=== PATIENT | female | born 1975 | race Caucasian/White ===

== ENCOUNTER 2017-03-20 21:05 | Inpatient (IN) ==
[2017-03-20] MEDS ORDERED: IOPAMIDOL 100 ML BOTTLE IV ONE (21:06)
[2017-03-20] MEDS ORDERED: PHENobarb/HYOSCY/ATROPINE/SCOP 1 DOSE BOTTLE PO ONE (21:21)
[2017-03-20] MEDS ORDERED: ONDANSETRON ODT 4 MG TABLET SL ONE (21:22)
[2017-03-20] MEDS ORDERED: SUCRALFATE 1 GM/10 ML ORAL.SUSP PO ONE (21:39)
[2017-03-20] MEDS ORDERED: PANTOPRAZOLE 40 MG VIAL IV ONE (21:39)
[2017-03-20 22:25] LABS: Basophils # (Auto) 0 K/mcL (0.0-0.3); Basophils % (Auto) 0 % (0.0-2.0); Eosinophils # (Auto) 0.2 K/mcL (0.0-0.7); Eosinophils % (Auto) 2.1 % (0.0-7.0); Granulocytes % (Auto) 84.4 % (38.0-78.0); Lymphocytes % (Auto) 8.8 % (15.5-49.0); Mean Cell Volume 87.3 fL (80.0-100.0); Mean Corpuscular HGB Conc 33.9 g/dL (31.0-36.0); Mean Corpuscular Hemoglobin 29.6 pg (26.0-34.0); Monocytes # (Auto) 0.5 K/mcL (0.1-0.9); Monocytes % (Auto) 4.7 % (1.0-12.0); Platelet Count 325 K/mcL (140-440); RBC 4.69 M/mcL (4.00-5.20)
[2017-03-20 22:53] LABS: ALT/SGPT 283 U/l (0-40); Albumin 3.6 gm/dL (3.2-5.2); Albumin/Globulin Ratio 1.2 (1.0-2.3); Alkaline Phosphatase 354 U/L (39-117); Amylase 630 U/L (28-100); Blood Urea Nitrogen 10 mg/dl (6-20)
[2017-03-20 23:08] LABS: Lipase 7580 U/L (7-60)
--- NOTE | 2017-03-20 23:08 | Emergency Department Note ---
Abdominal Pain HPI - General Chief Complaint: Abdominal Pain Stated Complaint: Thinks Stomach Ulcer Acting Up Time Seen by Provider: 03/20/17 21:08 Source: patient, family Mode of arrival: ambulatory Limitations: no limitations - History of Present Illness HPI Narrative: 41-year-old female who is concerned that she may have an ulcer experiencing epigastric pain for the last 3 weeks. Using Prilosec milk of magnesia Nexium with minimal effect. She actually had some respite yesterday but then he came back today. The pain does not let her sleep although it does not wake her up at night. She reports the pain is there all the time and food does not make it worse. Has bowel movement was little tarry but not black or bloody. Is having some nausea. Taking some Tylenol for that and chills with some effect. Tried some Tums in the past but this did not help. Typically drinks 2-3 beers per day but has not drank at all since this pain started - Related Data Allergies Allergy/AdvReac Type Severity Reaction Status Date / Time No Known Drug Allergies Allergy Verified 05/08/16 07:29 Review of Systems All systems ED: reviewed and negative except as stated. Abdominal Pain PMH - Past Medical History Attestation: Yes: The following information was validated with the patient. Medical history: Reports: no medical history Surgical history ED: Reports: other (Bladder mesh surgery, shoulder surgery) - Social History Smoking status: Never smoker Alcohol use: Reports: Heavy (Typically drinks 2-3 beers per day) Physical Exam No acute distress. Normocephalic atraumatic. Conjunctive are clear sclerae white and nonicteric. No nasal discharge or congestion. Oropharynx is pink and moist. Neck is supple without lymphadenopathy or thyromegaly. Heart is regular rate and rhythm no murmurs appreciated. Lungs are clear to auscultation bilaterally without wheezes rales rhonchi or respiratory distress. Abdomen soft mildly tender epigastric area diffusely. No right upper quadrant tenderness or flank tenderness. She is able to move around on the bed on her own. I do not see any peritoneal signs or guarding. No pedal edema. + 2 radial pulse. Alert oriented able answer questions appropriately. No dysarthria ataxia or tremor - General Limitations: no limitations Course Vital Signs Temperature 98.1 F 03/20/17 21:06 Pulse Rate 78 03/20/17 21:06 Respiratory Rate 18 03/20/17 21:06 Blood Pressure 119/90 03/20/17 21:06 Pulse Oximetry (%) 97 03/20/17 21:06 Temperature 98.1 F 03/20/17 21:06 Pulse Rate 69 03/20/17 22:43 Respiratory Rate 18 03/20/17 21:06 Blood Pressure 118/80 03/20/17 22:37 Pulse Oximetry (%) 96 03/20/17 22:43 Abdominal Pain - Lab Data Lab results reviewed: Yes I reviewed the patient's lab results. Result diagrams: 03/20/17 21:48 03/20/17 21:48 Lab Results 03/20/17 03/20/17 03/20/17 Range/Units 21:48 21:48 21:48 WBC 11.5 H (4.5-11.0) K/mcL RBC 4.69 (4.00-5.20) M/mcL Hgb 13.9 (12.0-15.0) g/dL Hct 41.0 (36.0-48.0) % MCV 87.3 (80.0-100.0) fL MCH 29.6 (26.0-34.0) pg MCHC 33.9 (31.0-36.0) g/dL RDW 14.0 (11.5-14.5) % Plt Count 325 (140-440) K/mcL MPV 8.6 (7.4-10.4) fL Gran % 84.4 H (38.0-78.0) % Lymph % (Auto) 8.8 L (15.5-49.0) % [place] % (Auto) 4.7 (1.0-12.0) % Eos % (Auto) 2.1 (0.0-7.0) % Baso % (Auto) 0 (0.0-2.0) % Gran # 9.7 H (1.8-8.0) K/mcL Lymph # (Auto) 1.0 L (1.5-4.8) K/mcL [place] # (Auto) 0.5 (0.1-0.9) K/mcL Eos # (Auto) 0.2 (0.0-0.7) K/mcL Baso # (Auto) 0 (0.0-0.3) K/mcL VBG Lactic Acid 2.4 H (0.5-2.2) mmol/L Sodium 134 (133-145) mmol/L Potassium 3.5 (3.3-5.1) mmol/L Chloride 96 (96-108) mmol/L Carbon Dioxide 22 (22-30) mmol/L Anion Gap 16.0 (8-16) BUN 10 (6-20) mg/dl Creatinine 0.9 (0.6-1.1) mg/dl GFR Calculation 79 Glucose 256 H (70-105) mg/dL Calcium 8.6 (8.6-10.4) mg/dl Total Bilirubin 1.2 H (0.0-1.0) mg/dL AST 238 H (0-37) U/l ALT 283 H (0-40) U/l Alkaline Phosphatase 354 H (39-117) U/L Total Protein 6.5 (5.9-8.4) gm/dL Albumin 3.6 (3.2-5.2) gm/dL Globulin 2.9 (2.2-3.7) gm/dL Albumin/Globulin Ratio 1.2 (1.0-2.3) Amylase 630 H (28-100) U/L Lipase 7580 H (7-60) U/L - Radiology Data Radiology results reviewed: Yes I reviewed the patient's radiology results. CT scan of the abdomen pelvis with contrast shows an inflamed gallbladder with gallstones as well as inflamed pancreas. Disposition Pt seen by WEEKDAY BABYSITTER/PA only: No Clinical Impression: Acute gallstone pancreatitis, Cholecystitis Summary: Given GI cocktail, Carafate, Zofran and IV Protonix during workup. IV fluids started Found to have an inflamed gallbladder and pancreas on CT scan. Additionally liver enzymes and glucose are up. Discussed case with Dr. Gar, edi coordinator on-call, who agreed to consult on the patient. He recommended high flow fluids overnight lactated Ringer's 250- 300 hour as well as an MRCP in the morning I also discussed case with Dr. Negrete our hospitalist who agreed to accept patient for further evaluation and care as an inpatient Disposition: Xfer Acute [facility] Condition: Fair Referrals: Kayode Paz DO [Primary Care Provider] -
[2017-03-20] MEDS ORDERED: 0.9 % SODIUM CHLORIDE 1,000 ML IV ONE (23:13)
[2017-03-20] MEDS ORDERED: LACTATED RINGERS 1,000 ML IV SCH (23:45)
--- NOTE | 2017-03-21 00:07 | Internal Med History&Physical ---
Medical - H&P: HPI Patient information: Note initiated : 03/21/17 at 12:05 am Patient: Karlie Lockwood 41 y/o F admitted on for Thinks Stomach Ulcer Acting Up. History of present illness: Ms. Lockwood is a 41 year old female with minimal past medical history, mainly hyperlipidemia, who notes that she has had intermittent abdominal discomfort for the last 3 weeks. She says her abdominal pain started rather suddenly just about 3 weeks ago. She thought perhaps she had an ulcer, so she obtained some ulcer medications to take. She was feeling a bit better, until yesterday morning, when she had sudden increase in epigastric pain as well as nausea. Over the course of yesterday her pain built up to about a 9 out of 10. She says she has been having fever and chills for the last couple of days. She has not had a bowel movement for about 3 days now. She denies vomiting or diarrhea. She normally drinks 2-3 cans of beer per day, but is not had any beer for several days. She does not smoke. ER evaluation showed markedly elevated amylase and lipase, consistent with pancreatitis. CT scan is suggestive of gallstone pancreatitis. Patient is now admitted for further evaluation and treatment. Her serum glucose was also markedly elevated, but she denies history of diabetes. Medical History Abdominal pain (Chronic) Acute sinusitis (Chronic) Cellulitis and abscess of leg, except foot (Chronic) Cellulitis, face (Chronic) Constipation (Chronic) Contusion of lower leg (Chronic) Decreased libido (Chronic) Hay fever (Chronic) History of bladder surgery (Chronic) 2009 Bladder mesh Sinus congestion (Chronic) Urinary incontinence (Chronic) Urinary tract infection symptoms (Chronic) Surgical History H/O shoulder surgery (Chronic) 2009 Broken shoulder History of oral surgery (Chronic) History of surgery (Chronic 04/30/10) Left humerus repair History of surgery (Chronic 08/10/10) MiniArc urethral sling Status post debridement (Chronic) 11/2013-Left knee Medication List Multivitamin 1 daily Allergies/Adverse Reaction No Known Drug Allergies Allergy Family History The patient says her mother has hyperlipidemia. She is unsure about her father' s history, but he may have heart disease. One brother is alive and well. She denies family history of diabetes, heart attack, stroke, gallbladder disease. Social History Patient is and lives with her and daughter. She usually drinks 2-3 beers per day. She does not use tobacco or drugs. She works as a sales receptionist. Medical - H&P: Meds Allergies Allergy/AdvReac Type Severity Reaction Status Date / Time No Known Drug Allergies Allergy Verified 05/08/16 07:29 Medical - H&P: Exam - Constitutional Vitals: Temp Pulse Resp BP Pulse Ox 98.1 F 69 18 118/80 96 03/20/17 21:06 03/20/17 22:43 03/20/17 21:06 03/20/17 22:37 03/20/17 22:43 On exam, the patient is awake and alert. She is not in any acute distress. Head: Normocephalic, atraumatic. Eyes: PERRLA, EOMI, anicteric. TMs and canals are clear. Pharynx is clear. Teeth are in good repair. Neck: Is supple, without lymphadenopathy, JVD, thyromegaly, bruits. Cardiac exam shows regular rate and rhythm with normal S1 and S2, without murmurs, rubs, gallops. Lungs: Are clear to auscultation, without rales, rhonchi, wheezes. Abdomen: Is soft. There is moderate epigastric tenderness to palpation, but no guarding or rebound. Bowel sounds are hypoactive. No masses are appreciated. Extremities: Show no cyanosis, clubbing, edema. There is a large well-healed scar noted over her left ankle from a previous accident with her horse. Neurologic exam: Is grossly nonfocal. Skin exam: Does not show any rashes or other worrisome lesions. Medical - H&P: Reslt - Labs CBC & Chem 7: 03/20/17 21:48 03/20/17 21:48 Labs: Short CBC 03/20/17 Range/Units 21:48 WBC 11.5 H (4.5-11.0) K/mcL Hgb 13.9 (12.0-15.0) g/dL Hct 41.0 (36.0-48.0) % Plt Count 325 (140-440) K/mcL BMP 03/20/17 21:48 Sodium 134 Potassium 3.5 Chloride 96 Carbon Dioxide 22 BUN 10 Creatinine 0.9 Glucose 256 H Calcium 8.6 Liver Function 03/20/17 Range/Units 21:48 Total Bilirubin 1.2 H (0.0-1.0) mg/dL AST 238 H (0-37) U/l ALT 283 H (0-40) U/l Alkaline Phosphatase 354 H (39-117) U/L Albumin 3.6 (3.2-5.2) gm/dL CT of the abdomen: Formal report is pending. ER reports as showing gallstone pancreatitis. Medical - H&P: A/P (1) Hyperglycemia Current visit: Yes Status: Acute (2) Leukocytosis Current visit: Yes Status: Acute (3) Acute gallstone pancreatitis Current visit: Yes Status: Acute (4) Hyperlipidemia Current visit: No Status: Chronic - Narrative A/P Narrative: #1. GI. Patient presents with signs and symptoms associated with acute gallstone pancreatitis, cholecystitis.. -Admit, n.p.o., IV fluid resuscitation. -GI consult, with possible ERCP. I believe GI requested an MRCP in the morning. -Pain meds and antiemetics. -Patient is not vomiting, so we will not place an NG tube at this time. -Durham's criteria score of about 2, with a predicted mortality of less than 5%. 2. Endocrine. Patient presents with markedly elevated glucose, suggestive of underlying diabetes, which was not previously diagnosed. -Accu-Cheks and sliding scale coverage. Check hemoglobin A1c. 3. Hyperlipidemia. 4. CODE STATUS: Full code. Her will act as her POA. 5. DVT prophylaxis: SCDs for tonight. Consider heparin after her procedure. 6. Infectious disease. Patient presents with leukocytosis, and recent fevers and chills, probable cholecystitis with pancreatitis.. Check blood cultures. -Cover with empiric Zosyn, pending culture results. Approximately 55 minutes was spent this evening, reviewing the patient's case with the ER MD, reviewing old records and current test results, interviewing and examining the patient, reviewing plan of care, and writing orders.
[2017-03-21] MEDS ORDERED: ALBUTEROL SULFATE 2.5 MG/3 ML NEBULIZER NEB PRN (00:30)
[2017-03-21] MEDS ORDERED: DEXTROSE 50% 50 ML VIAL IV PRN (00:30)
[2017-03-21] MEDS ORDERED: ONDANSETRON 4 MG/2 ML VIAL IV PRN (00:30)
[2017-03-21] MEDS ORDERED: MAGNESIUM HYDROXIDE 30 ML ORAL.SUSP PO PRN (00:30)
[2017-03-21] MEDS ORDERED: NALOXONE HCL 0.4 MG/ML VIAL IV PRN (00:30)
[2017-03-21] MEDS: 0.9 % SODIUM CHLORIDE 10 ML SYRINGE IV SCH ×6 (00:56→22:36)
[2017-03-21] MEDS: LACTATED RINGERS 1,000 ML IV SCH ×6 (00:57→20:48)
[2017-03-21] MEDS ORDERED: LORazepam 2 MG/ML VIAL IV PRN (01:11)
[2017-03-21] MEDS: PIPERACILLIN SODIUM/TAZOBACTAM 3.375 GM in DEXTROSE 5% IN WATER 50 ML IV SCH ×4 (02:08→17:57)
[2017-03-21] MEDS ORDERED: PIPERACILLIN SODIUM/TAZOBACTAM 3.375 GM VIAL IV ONE (02:12)
[2017-03-21 05:06] LABS: Basophils # (Auto) 0 K/mcL (0.0-0.3); Basophils % (Auto) 0.3 % (0.0-2.0); Eosinophils # (Auto) 0.2 K/mcL (0.0-0.7); Eosinophils % (Auto) 2.2 % (0.0-7.0); Granulocytes % (Auto) 70.7 % (38.0-78.0); Lymphocytes # (Auto) 1.3 K/mcL (1.5-4.8); Mean Cell Volume 87.1 fL (80.0-100.0); Mean Corpuscular HGB Conc 34.5 g/dL (31.0-36.0); Monocytes # (Auto) 0.6 K/mcL (0.1-0.9); Monocytes % (Auto) 8.8 % (1.0-12.0); Platelet Count 301 K/mcL (140-440); RBC 4.39 M/mcL (4.00-5.20); Red Cell Distribution Width 13.8 % (11.5-14.5)
[2017-03-21 05:23] LABS: ALT/SGPT 263 U/l (0-40); Albumin 3.7 gm/dL (3.2-5.2); Albumin/Globulin Ratio 1.5 (1.0-2.3); Alkaline Phosphatase 327 U/L (39-117); Amylase 359 U/L (28-100); Bilirubin,Direct 0.4 mg/dL (0.0-0.3); Blood Urea Nitrogen 8 mg/dl (6-20); Gamma Glutamyl Transpeptidase 560 U/L (5-36); Magnesium 2.5 mg/dL (1.6-2.5); Uric Acid 4.1 mg/dL (2.5-8.0)
[2017-03-21 05:28] LABS: Lipase 1854 U/L (7-60)
[2017-03-21] MEDS: INSULIN LISPRO 1 UNIT/0.01 ML UNIT SQ SCH ×3 (06:10→17:57)
[2017-03-21] MEDS: PANTOPRAZOLE 40 MG VIAL IV SCH (07:44)
--- NOTE | 2017-03-21 09:27 | Cat Scan Report ---
CLINICAL INFORMATION: With epigastric pain COMPARISON: None. TECHNIQUE: Following enteric contrast, 80 cc of Isovue-300 were injected intravenously, and 60 seconds later, 2.5 mm helical slices were obtained from the mid heart through the subtrochanteric regions. Following reconstruction, 2.5 mm sagittal, coronal and axial reformatted images were processed and reviewed at bone, lung and soft tissue windows. Five minutes later, 5 mm helical slices were obtained from the mid heart through the kidneys and viewed at soft tissue windows. FINDINGS: Lung bases show no abnormality - no effusion. Visualized heart is normal. The distal esophagus is unremarkable. Images through the abdomen show minimal fatty change within the liver, but no focal hepatic lesion. There is a 2 mm stone within the gallbladder. Gallbladder wall is moderately thickened (5 mm) with moderate pericholecystic fluid which also extends into the armida hepatis and medial periduodenal region. The cystic common hepatic and proximal common bile ducts also show mild thickening and enhancement of the epithelium which suggests secondary cholangitis. The pancreas, including pancreatic duct, is unremarkable. Both kidneys, adrenal glands, spleen and aorta, including aortic branches, are normal in size, configuration and attenuation without focal lesion. The stomach, small and large bowel, including the appendix, are normal. Images through the pelvis show uterus anteflexed and normal in size - 7 x 4 cm. There is a 11 mm simple cyst in the left ovary. Bone windows show no osseous abnormality IMPRESSION: 1. Cholecystitis. Mild enhancement of the biliary epithelium of the the cystic, common hepatic and proximal common bile duct suggest associated cholangitis. Interpreted and Authenticated by: Kayode Wells 03/21/17
--- NOTE | 2017-03-21 12:55 | Internal Med Progress Note ---
Medical - PN: Subj Patient information: Note initiated : 03/21/17 at 12:53 pm Patient: Karlie Lockwood 41 y/o F admitted on 03/21/17 for Thinks Stomach Ulcer Acting Up. Interval history: March 20, 2017: History of present illness: Ms. Lockwood is a 41 year old female with minimal past medical history, mainly hyperlipidemia, who notes that she has had intermittent abdominal discomfort for the last 3 weeks. She says her abdominal pain started rather suddenly just about 3 weeks ago. She thought perhaps she had an ulcer, so she obtained some ulcer medications to take. She was feeling a bit better, until yesterday morning, when she had sudden increase in epigastric pain as well as nausea. Over the course of yesterday her pain built up to about a 9 out of 10. She says she has been having fever and chills for the last couple of days. She has not had a bowel movement for about 3 days now. She denies vomiting or diarrhea. She normally drinks 2-3 cans of beer per day, but is not had any beer for several days. She does not smoke. ER evaluation showed markedly elevated amylase and lipase, consistent with pancreatitis. CT scan is suggestive of gallstone pancreatitis. Patient is now admitted for further evaluation and treatment. Her serum glucose was also markedly elevated, but she denies history of diabetes. March 21: Today, the patient notes her pain is pretty well controlled. She has not had any more nausea and no vomiting. She is feeling quite chilled after just coming back from the MRI suite. Otherwise she has not had further fever or shaking chills, chest pain or trouble breathing, diarrhea or constipation. She has passed some flatus. She denies dysuria. - Constitutional Vitals: Vital Signs Temp Pulse Resp BP Pulse Ox 98.6 F 55 L 16 110/68 95 03/21/17 12:00 03/21/17 07:45 03/21/17 12:00 03/21/17 12:00 03/21/17 12:00 Period Temp Pulse Resp BP Sys/Collazo Pulse Ox Last 24 Hr 98 F-98.6 F 55-56 16-16 98-110/68-71 95-98 Intake and Output 03/20/17 03/21/17 03/21/17 21:59 05:59 13:59 Intake Total 992 / 992 1050 / 1050 Output Total 600 / 600 1500 / 1500 Balance 392 / 392 -450 / -450 Intake & Output: Intake & Output 03/20/17 03/21/17 03/21/17 21:59 05:59 13:59 Intake Total 992 / 992 1050 / 1050 Output Total 600 / 600 1500 / 1500 Balance 392 / 392 -450 / -450 Intake: IV 992 / 992 1050 / 1050 Lactated Ringers 1,000 ml 992 / 992 1000 / 1000 @ 250 mls/hr IV .Q4H [facility] Rx#:[id number] Zosyn 3.375 gm In 50 / 50 Dextrose 5% in Water 50 ml @ 100 mls/hr IV Q6H [facility]AM Rx#:[id number] Oral 0 / 0 Output: Void Amount 600 / 600 1500 / 1500 Other: # Bowel Movements 1 Temperature 98.6. Heart rate 55-69. Respiratory rate 16. Blood pressure 110/ 68. O2 saturation 95% on room air Neck is supple without lymphadenopathy or JVD. Cardiac exam shows regular rate and rhythm. Lungs are clear to auscultation. Abdomen: Is soft without guarding or rebound. There is mild epigastric tenderness. No masses are obvious. Bowel sounds are hypoactive. Extremities: Show no edema. Neurologic exam: Is grossly nonfocal. Medical - PN: Obj Da - Labs CBC & Chem 7: 03/21/17 04:00 03/21/17 04:00 Labs: Abnormal Lab Results 03/21/17 03/21/17 04:00 04:00 Lymph # (Auto) 1.3 L Calcium 8.4 L Direct Bilirubin 0.4 H GGT 560 H AST 164 H ALT 263 H Alkaline Phosphatase 327 H Triglycerides 354 H Amylase 359 H Lipase 1854 H March 21: Blood cultures are pending. MRCP: Report is pending. March 20: CT of the abdomen and pelvis: Gallbladder wall is thickened with moderate pericholecystic fluid. Bile ducts are also thickened, suggesting possible secondary cholangitis. Pancreas and pancreatic duct are unremarkable. CBC: White blood cell count 11,500, hemoglobin 13, hematocrit 41, granulocyte count 9700. Pro time is 12 with INR of 0.9, PTT is normal at 30. Lactic acid was elevated at 2.4. Chemistry panel: Is normal other than a glucose of 256 Total bilirubin elevated at 1.2, AST 238, ALT 283, alk phos 354 Amylase high at 630 Lipase high at 7580 Meds: Medications Albuterol Sulfate (Ventolin) 2.5 mg NEB Q2HP PRN PRN Reason: Shortness Of Breath Dextrose (Dextrose 50%) 0 ml IV UD PRN PRN Reason: Hypoglycemia Diagnostic Test (Pha) (Accu-Chek) 1 each FS Q6 [facility] Last Admin: 03/21/17 12:05 Dose: 1 each Lactated Ringer's (Lactated Ringers) 1,000 mls @ 250 mls/hr IV .Q4H [facility] Last Admin: 03/21/17 12:07 Dose: Not Given Piperacillin Sod/Tazobactam (Sod 3.375 gm/ Dextrose) 50 mls @ 100 mls/hr IV Q6H [facility] Last Admin: 03/21/17 12:05 Dose: 100 mls/hr Insulin Human Lispro (Humalog) 0 unit SQ Q6 [facility] PRN Reason: Protocol Last Admin: 03/21/17 12:05 Dose: Not Given Lorazepam (Ativan) 0.5 mg IV Q2HP PRN PRN Reason: ANXIETY/SEDATION Last Admin: 03/21/17 08:31 Dose: 0.5 mg Magnesium Hydroxide (Milk Of Magnesia) 30 ml PO DAILYP PRN PRN Reason: Constipation Morphine Sulfate (Morphine) 4 mg IV Q4HP PRN PRN Reason: Pain Naloxone HCl (Narcan) 0.1 mg IV Q2MIN PRN PRN Reason: Opiate Reversal Ondansetron HCl (Zofran) 4 mg IV Q6HP PRN PRN Reason: Nausea And Vomiting Pantoprazole Sodium (Protonix) 40 mg IV QAMAC [facility] Last Admin: 03/21/17 07:44 Dose: 40 mg Sodium Chloride (Saline Flush) 10 ml IV Q8 [facility] Last Admin: 03/21/17 06:11 Dose: Not Given Medical - PN: A/P - Time Spent With Patient Total time spent is greater than 50% in coordination of care (as documented) at patient's floor/unit and/or counseling patient: 25 - 35 minutes (1) Hyperglycemia Status: Acute Current Visit: Yes (2) Leukocytosis Status: Acute Current Visit: Yes (3) Acute gallstone pancreatitis Status: Acute Current Visit: Yes (4) Hyperlipidemia Status: Chronic Current Visit: No - Narrative A/P Narrative: #1. GI. Patient presents with signs and symptoms associated with acute gallstone pancreatitis, cholecystitis.. CT scan report that I just received, suggest more a picture of cholecystitis and cholangitis, rather than pancreatitis. The patient is clinically improved, on IV fluids and IV Zosyn. -I will review with Dr. Ivey of general surgery. -Continue IV fluids, n.p.o. status. Pain meds, antiemetics. -Dr. Samaniego of GI to see later today. 2. Endocrine. Patient presents with markedly elevated glucose, suggestive of underlying diabetes, which was not previously diagnosed. -Accu-Cheks have shown normal glucoses ranging from 86-118. 3. Hyperlipidemia. -Not treated. 4. CODE STATUS: Full code. Her will act as her POA. 5. DVT prophylaxis: SCDs for tonight. Consider heparin after her procedure. 6. Infectious disease. Patient presents with leukocytosis, and recent fevers and chills, probable cholecystitis with pancreatitis.. Check blood cultures. -Cover with empiric Zosyn, pending culture results. Approximately 30 minutes has been spent so far today, reviewing test results, interviewing and examining the patient and reviewing plan of care with she and her , touching base with both GI and surgery. Medical - PN: Qual - VTE Deep Vein Thrombosis/Pulmonary Embolism Present on Admission: No
--- NOTE | 2017-03-21 15:40 | Magnetic Resonance Report ---
CLINICAL INFORMATION: Cholecystitis. Evaluate for retained common bile duct stone COMPARISON: Abdominal CT from 03/20/2017. TECHNIQUE: MRCP was performed using 3D FRFSE respiratory triggered and single-shot FSE thick slab technique. Axial T2 SSFSE and coronal SSFSE images were obtained through the upper abdomen as well. FINDINGS: The gallbladder is mildly enlarged with marked gallbladder wall thickening - greater than 8 mm and pericholecystic fluid which extends into the armida hepatis. While region. Solitary stone seen in the gallbladder. There is minimal thickening of the cystic duct common hepatic and proximal common bile duct epithelium suggestive of secondary inflammation. Common bile is normal caliber - 5 mm There is no evidence of retained stone within the common bile duct. The liver, both kidneys, adrenal glands, spleen and aorta are normal. The pancreas is normal in size configuration and signal intensity. (It is acknowledged that amylase/lipase are elevated and pancreatitis is suspected but there is no imaging evidence for pancreatic inflammation). No free air, free fluid or adenopathy. The stomach and visualized small/large bowel are normal IMPRESSION: 1. Acute cholecystitis. Solitary stone is seen in the gallbladder. There is moderate gallbladder wall thickening and pericholecystic fluid with fluid extending in the armida hepatis and periduodenal region. 1. Mild thickening of the ductal epithelium of the common hepatic and proximal common bile and cystic duct suggesting secondary cholangitis. There is no evidence of retained duct stone 2. Pancreas, including pancreatic ducts, is unremarkable Interpreted and Authenticated by: Kayode Wells 03/21/17
--- NOTE | 2017-03-21 22:55 | Consultation ---
DATE OF CONSULTATION: 03/21/2017 Gastroenterology Consultation Note CHIEF COMPLAINT: Pancreatitis. HISTORY OF PRESENT ILLNESS: Mrs. Sharma is 41-year-old female who presented to the emergency room late last night with intermittent abdominal pain that became severe yesterday. Her presenting laboratory data showed an elevated lipase and amylase with elevated liver chemistries as well, suggesting gallstone pancreatitis. The patient does have a history of drinking 2 or maybe 3 beers per day, but in the last 3 weeks had stopped drinking any alcohol. She has very little past medical history. She is on no chronic medications. However, during the last 3 weeks she has had intermittent epigastric pain which she attributed to an ulcer. She self-medicated with some antacid pills and would obtain some occasional relief of pain. In fact earlier this week she had no further pain and she thought that whatever problem existed had resolved. Then yesterday she had fairly rapid onset of epigastric pain of a much more severe nature, associated with fever and chills. No vomiting. She came to the emergency room for evaluation. Her lipase was 7580. Amylase 630. Total bilirubin elevated at 1.2 with AST 238, ALT 283 and alkaline phosphatase 354. White count was a little bit elevated at 11,500 last night. A CAT scan done last night showed cholecystitis with mild enhancement of the biliary epithelium of the cystic duct, common hepatic duct, and proximal common bile duct suggesting possible associated cholangitis. The pancreas actually looked normal. I advised that the patient receive intravenous with fluid hydration aggressively with lactated Ringer's. Nothing by mouth status. Supportive measures. I recommended MRCP to be done today. The MRCP was done today and showed acute cholecystitis with solitary stone in the gallbladder. Moderate gallbladder wall thickening and pericholecystic fluid. Mild thickening of the ductal epithelium of the common hepatic duct and proximal common bile duct and cystic duct, suggested secondary cholangitis, but there was no evidence of retained duct stone. The pancreas continues to appear unremarkable on the MRCP. Today, her bilirubin is down to 0.8. AST is down to 164; ALT down to 263; alkaline phosphatase down to 327; lipase down to 1854, and amylase down to 359. White count is down to 7200. The patient feels fairly well tonight. No nausea or vomiting today. Her chills have resolved. She is awaiting consultation by general surgery. PAST MEDICAL HISTORY: Essentially negative, other than some hyperlipidemia. Not on any medical treatment. MEDICATIONS: No chronic medications. PAST SURGICAL HISTORY: No abdominal surgeries. ALLERGIES: NO KNOWN DRUG ALLERGIES. SOCIAL HISTORY: No smoking. . Had been drinking 2 or 3 beers per day but not in the last 3 weeks or so. EXAMINATION: VITAL SIGNS: Temperature 98.6 degrees, pulse 84, respirations 16, blood pressure 116/78. GENERAL: The patient is awake and alert. No acute distress. HEENT: Airway is patent. SKIN: Without stigmata of chronic liver disease. CARDIAC: Regular rate and rhythm without gallop. LUNGS: Clear bilaterally to auscultation. ABDOMEN: Soft and nondistended. No tenderness tonight on moderate palpation. No hepatosplenomegaly. No evident ascites. EXTREMITIES: Without edema. LABORATORY STUDIES: As noted above. ASSESSMENT AND RECOMMENDATIONS: Even though the patient has a normal appearing pancreas on CAT scan and MRCP, I do think she developed pancreatitis given the characteristic pain at the epigastrium and the elevated pancreatic enzymes. The question of gallstone pancreatitis was raised because of the elevated liver chemistries, but on MRCP testing today there is no retained stone in the common bile duct to suggest need for endoscopic retrograde cholangiopancreatography. She does have evidence of cholecystitis by the CAT scan and MRCP. I agree with consulting surgery for a cholecystectomy, hopefully during this admission. Continue intravenous fluid and antibiotic coverage with Zosyn, as you are doing. JCM:natalia Job ID: [id number] Doc ID: [id number] Kayode Paz DO
[2017-03-22] MEDS: PIPERACILLIN SODIUM/TAZOBACTAM 3.375 GM in DEXTROSE 5% IN WATER 50 ML IV SCH ×4 (00:17→17:43)
[2017-03-22] MEDS: INSULIN LISPRO 1 UNIT/0.01 ML UNIT SQ SCH ×4 (00:20→17:53)
[2017-03-22] MEDS: LACTATED RINGERS 1,000 ML IV SCH ×8 (00:59→22:57)
[2017-03-22] MEDS: 0.9 % SODIUM CHLORIDE 10 ML SYRINGE IV SCH ×3 (05:19→21:58)
[2017-03-22 06:20] LABS: Basophils # (Auto) 0 K/mcL (0.0-0.3); Basophils % (Auto) 0.1 % (0.0-2.0); Eosinophils # (Auto) 0 K/mcL (0.0-0.7); Eosinophils % (Auto) 0 % (0.0-7.0); Granulocytes % (Auto) 84.6 % (38.0-78.0); Lymphocytes # (Auto) 0.5 K/mcL (1.5-4.8); Lymphocytes % (Auto) 9.2 % (15.5-49.0); Mean Cell Volume 87.4 fL (80.0-100.0); Mean Corpuscular HGB Conc 33.8 g/dL (31.0-36.0); Mean Corpuscular Hemoglobin 29.5 pg (26.0-34.0); Monocytes # (Auto) 0.4 K/mcL (0.1-0.9); Monocytes % (Auto) 6.1 % (1.0-12.0); Platelet Count 257 K/mcL (140-440); RBC 4.45 M/mcL (4.00-5.20); Red Cell Distribution Width 13.4 % (11.5-14.5)
[2017-03-22 06:51] LABS: ALT/SGPT 209 U/l (0-40); Albumin 3.5 gm/dL (3.2-5.2); Albumin/Globulin Ratio 1.4 (1.0-2.3); Alkaline Phosphatase 275 U/L (39-117); Amylase 100 U/L (28-100); Bilirubin,Direct 0.3 mg/dL (0.0-0.3); Blood Urea Nitrogen 6 mg/dl (6-20); Gamma Glutamyl Transpeptidase 435 U/L (5-36); Lipase 255 U/L (7-60); Magnesium 1.8 mg/dL (1.6-2.5); Uric Acid 2.7 mg/dL (2.5-8.0)
[2017-03-22] MEDS ORDERED: POTASSIUM PHOSPHATE 20 MEQ in DEXTROSE 5% IN WATER 250 ML IV ONE (07:30)
[2017-03-22] MEDS: PANTOPRAZOLE 40 MG VIAL IV SCH (08:03)
--- NOTE | 2017-03-22 10:31 | Internal Med Progress Note ---
Medical - PN: Subj Patient information: Note initiated : 03/22/17 at 10:31 am Patient: Karlie Lockwood 41 y/o F admitted on 03/21/17 for Thinks Stomach Ulcer Acting Up. Interval history: March 20, 2017: History of present illness: Ms. Lockwood is a 41 year old female with minimal past medical history, mainly hyperlipidemia, who notes that she has had intermittent abdominal discomfort for the last 3 weeks. She says her abdominal pain started rather suddenly just about 3 weeks ago. She thought perhaps she had an ulcer, so she obtained some ulcer medications to take. She was feeling a bit better, until yesterday morning, when she had sudden increase in epigastric pain as well as nausea. Over the course of yesterday her pain built up to about a 9 out of 10. She says she has been having fever and chills for the last couple of days. She has not had a bowel movement for about 3 days now. She denies vomiting or diarrhea. She normally drinks 2-3 cans of beer per day, but is not had any beer for several days. She does not smoke. ER evaluation showed markedly elevated amylase and lipase, consistent with pancreatitis. CT scan is suggestive of gallstone pancreatitis. Patient is now admitted for further evaluation and treatment. Her serum glucose was also markedly elevated, but she denies history of diabetes. March 21: Today, the patient notes her pain is pretty well controlled. She has not had any more nausea and no vomiting. She is feeling quite chilled after just coming back from the MRI suite. Otherwise she has not had further fever or shaking chills, chest pain or trouble breathing, diarrhea or constipation. She has passed some flatus. She denies dysuria. March 22: Today, the patient says she is feeling much better. She denies any abdominal pain, nausea or vomiting. She did have a low-grade temp last night of 100.8. She denies subjective fever or chills, chest pain or shortness of breath, abdominal pain, nausea or vomiting, diarrhea or constipation or dysuria. Pancreatic enzymes and liver enzymes continue to improve. - Constitutional Vitals: Vital Signs Temp Pulse Resp BP Pulse Ox 99.2 F H 67 16 111/77 95 03/22/17 08:00 03/22/17 08:00 03/22/17 08:00 03/22/17 08:00 03/22/17 08:00 Period Temp Pulse Resp BP Sys/Collazo Pulse Ox Last 24 Hr 98.2 F-100.8 F 66-84 16-16 110-120/68-80 94-98 Intake and Output 03/21/17 03/22/17 03/22/17 21:59 05:59 13:59 Intake Total 2049 50 / 50 Output Total 1849 900 / 900 Balance 200 / 200 25 / 25 -850 / -850 Weight 159 lb Intake & Output: Intake & Output 03/21/17 03/22/17 03/22/17 21:59 05:59 13:59 Intake Total 2049 50 / 50 Output Total 1849 900 / 900 Balance 200 / 200 25 / 25 -850 / -850 Weight 159 lb Intake: IV 2049 50 / 50 Lactated Ringers 1,000 ml 1999 / 1999 1999 / 1999 @ 250 mls/hr IV .Q4H MYRIAM Rx#:[id number] Zosyn 3.375 gm In 50 / 50 50 / 50 50 / 50 Dextrose 5% in Water 50 ml @ 100 mls/hr IV Q6H MYRIAM Rx#:[id number] Oral 0 / 0 Output: Void Amount 1849 900 / 900 Other: # Voids 1 1 T-max was 100.8, now 99.2. Heart rate 67. Respiratory rate 16. Blood pressure 111/77. O2 saturation 95% on room air. She is awake and smiling, in no acute distress. Neck is supple without lymphadenopathy or JVD. Cardiac exam shows regular rate and rhythm. Lungs are clear to auscultation. Abdomen: Is soft without guarding or rebound. There is normal epigastric tenderness, and no obvious right upper quadrant tenderness.. No masses are obvious. Bowel sounds are hypoactive. Extremities: Show no edema. Neurologic exam: Is grossly nonfocal. Medical - PN: Obj Da - Labs CBC & Chem 7: 03/22/17 05:30 03/22/17 05:30 Labs: Abnormal Lab Results 03/22/17 03/22/17 03/21/17 05:30 05:30 04:00 Gran % 84.6 H Lymph % (Auto) 9.2 L Lymph # (Auto) 0.5 L Calcium 8.5 L 8.4 L Phosphorus 2.3 L Direct Bilirubin 0.4 H GGT 435 H 560 H AST 116 H 164 H ALT 209 H 263 H Alkaline Phosphatase 275 H 327 H Triglycerides 239 H 354 H Amylase 359 H Lipase 255 H 1854 H 03/21/17 04:00 Gran % Lymph % (Auto) Lymph # (Auto) 1.3 L Calcium Phosphorus Direct Bilirubin GGT AST ALT Alkaline Phosphatase Triglycerides Amylase Lipase March 21: Blood cultures are negative so far. MRCP: Shows acute cholecystitis. There is a solitary stone in the gallbladder with moderate gallbladder wall thickening and pericholecystic fluid. Mild thickening of the ductal epithelium of the common hepatic and proximal common bile duct and cystic duct suggestive of cholangitis. Pancreas, including ducts , is unremarkable. March 20: CT of the abdomen and pelvis: Gallbladder wall is thickened with moderate pericholecystic fluid. Bile ducts are also thickened, suggesting possible secondary cholangitis. Pancreas and pancreatic duct are unremarkable. CBC: White blood cell count 11,500, hemoglobin 13, hematocrit 41, granulocyte count 9700. Pro time is 12 with INR of 0.9, PTT is normal at 30. Lactic acid was elevated at 2.4. Chemistry panel: Is normal other than a glucose of 256 Total bilirubin elevated at 1.2, AST 238, ALT 283, alk phos 354 Amylase high at 630 Lipase high at 7580 Meds: Medications Albuterol Sulfate (Ventolin) 2.5 mg NEB Q2HP PRN PRN Reason: Shortness Of Breath Dextrose (Dextrose 50%) 0 ml IV UD PRN PRN Reason: Hypoglycemia Diagnostic Test (Pha) (Accu-Chek) 1 each FS Q6 [facility] Last Admin: 03/22/17 05:32 Dose: 1 each Lactated Ringer's (Lactated Ringers) 1,000 mls @ 250 mls/hr IV .Q4H MYRIAM Last Admin: 03/22/17 05:24 Dose: 250 mls/hr Piperacillin Sod/Tazobactam (Sod 3.375 gm/ Dextrose) 50 mls @ 100 mls/hr IV Q6H [facility] Last Infusion: 03/22/17 06:00 Dose: Infused Insulin Human Lispro (Humalog) 0 unit SQ Q6 MYRIAM PRN Reason: Protocol Last Admin: 03/22/17 05:33 Dose: Not Given Lorazepam (Ativan) 0.5 mg IV Q2HP PRN PRN Reason: ANXIETY/SEDATION Last Admin: 03/21/17 08:31 Dose: 0.5 mg Magnesium Hydroxide (Milk Of Magnesia) 30 ml PO DAILYP PRN PRN Reason: Constipation Morphine Sulfate (Morphine) 4 mg IV Q4HP PRN PRN Reason: Pain Naloxone HCl (Narcan) 0.1 mg IV Q2MIN PRN PRN Reason: Opiate Reversal Ondansetron HCl (Zofran) 4 mg IV Q6HP PRN PRN Reason: Nausea And Vomiting Pantoprazole Sodium (Protonix) 40 mg IV QAMAC [facility] Last Admin: 03/22/17 08:03 Dose: 40 mg Sodium Chloride (Saline Flush) 10 ml IV Q8 [facility] Last Admin: 03/22/17 05:19 Dose: Not Given Medical - PN: A/P - Time Spent With Patient Total time spent is greater than 50% in coordination of care (as documented) at patient's floor/unit and/or counseling patient: 15 - 24 minutes (1) Hyperglycemia Status: Acute Current Visit: Yes (2) Leukocytosis Status: Acute Current Visit: Yes (3) Acute gallstone pancreatitis Status: Acute Current Visit: Yes (4) Hyperlipidemia Status: Chronic Current Visit: No - Narrative A/P Narrative: #1. GI. Patient presents with signs and symptoms associated with acute gallstone pancreatitis, cholecystitis.. CT scan and MRCP suggest more a picture of cholecystitis and cholangitis, rather than pancreatitis. The patient is clinically improved, on IV fluids and IV Zosyn. -Dr. Ivey will formally see her today, and plan on cholecystectomy, probably tomorrow. -The patient continues to be febrile, so I will continue Zosyn, and add ciprofloxacin to beef up the gram-negative coverage. -Continue IV fluids. We will give her a trial of clear fluids this afternoon. Pain meds, antiemetics. -Dr. Samaniego of GI has seen her as well, and also agrees with the need for probable surgery. 2. Endocrine. Patient presents with markedly elevated glucose, suggestive of underlying diabetes, -Blood glucoses have been normal since admission. 3. Hyperlipidemia. -Not treated. 4. CODE STATUS: Full code. Her will act as her POA. 5. DVT prophylaxis: SCDs for tonight. Consider heparin after her procedure. 6. Infectious disease. Patient presents with leukocytosis, and recent fevers and chills, probable cholecystitis with pancreatitis.. Check blood cultures. -Cover with empiric Zosyn, pending culture results. -Add ciprofloxacin today, as above. Approximately 25 minutes has been spent so far today, reviewing test results, interviewing and examining the patient and reviewing plan of care with she and her , touching base with surgery. Medical - PN: Qual - VTE Deep Vein Thrombosis/Pulmonary Embolism Present on Admission: No
[2017-03-22] MEDS: CIPROFLOXACIN 400 MG/200 ML BAG IV SCH ×2 (13:38→22:58)
--- NOTE | 2017-03-22 17:01 | General Surgery Consult Note ---
History of Present Illness Patient information: Note initiated : 03/22/17 at 4:58 pm Service Date, if different from initiated Date: [] Patient: Karlie Lockwood 41 y/o F admitted on 03/21/17 for Gallstone Pancreatitis, Cholecystitis. Chief Complaint: [] Reason for consult: abdominal pain Requesting physician: Rosy Maki History of present illness: 41-year-old female admitted with recurrent severe abdominal pain of 3 weeks duration. Her pain became mue on the day of admission and she finally sought attention in the emergency room. Prior to coming to the emergency room she took Mylanta Nexium and other [id number] me without improvement. She had not had similar abdominal discomfort in the past. She was noted in the emergency room to have elevated LFTs and amylase and lipase. Abdominal CT suggested gallstones. This was confirmed by MRCP. There was some thickening of the distal common bile duct epithelium but no common bile duct stone. Over the past 2 days her transaminases and amylase and lipase have started to normalize. Her bilirubin was never elevated. She is stable now and will be scheduled for laparoscopic cholecystectomy on this admission. Review of Systems - Constitutional weight gain - EENT Nose, mouth and throat: no abnormal hearing, no dizziness, no neck pain, no throat swelling - Cardiovascular no chest pain, no dyspnea, no irregular heart rhythm, no palpatations, no syncope - Respiratory no dyspnea on exertion, no wheezing, no chest congestion, no pain with cough - Gastrointestinal abdominal pain, constipation, heartburn, nausea - Genitourinary Genitourinary: urinary incontinence - Musculoskeletal arthralgias, stiffness - Integumentary no non-healing lesions, no pruritus, no rash, no sores - Neurological no abnormal gait, no confusion, no dizziness, no headache(s), no memory loss, no numbness, no syncope - Psychiatric no anxiety, no confusion, no depression, no paranoia - Endocrine no fatigue, no palpitations - Hematologic/Lymphatic no easy bleeding, no easy bruising, no lymphadenopathy - Allergic/Immunologic no tongue swelling, no throat swelling, no uticaria, no wheezing, no lip swelling Past History Past medical history: no chronic medical illness Past surgical history: pen treatment and fixation of left humeral fracture Past family history: mother A 63 healthy Father age 63 with history of heart failure Brother age 29 healthy Past social history: Employed No history of tobacco use Daily alcohol use Medications and Allergies Home Medications Medication Instructions Recorded Confirmed Type Multivitamin [One Daily 1 each PO DAILY 03/21/17 03/21/17 History Multivitamin] Allergies Allergy/AdvReac Type Severity Reaction Status Date / Time No Known Drug Allergies Allergy Verified 03/21/17 02:02 Exam Temp Pulse Resp BP Pulse Ox 98.0 F 89 16 108/75 96 03/22/17 12:00 03/22/17 12:00 03/22/17 12:00 03/22/17 12:00 03/22/17 12:00 - General physical appearance well developed, well nourished, no distress - Eyes PERRL, normal ocular movement - ENT normal pinna, normal nares, normal mucosa, no hearing loss, no congestion - Head Head exam IM: Present: atraumatic, normocephalic - Neck no masses, no bruits, trachea midline, no lymphadectomy, no venous distension - Cardiovascular Cardiovascular exam IM: Present: normal rate and rhythm - Respiratory normal expansion, normal respiratory effort, clear to percussion, clear to auscultation - Abdomen Abdomen: Present: soft, non tender (mild epigastric and left upper quadrant tenderness; no guarding or rebound; mild distention), tender, bowel sounds Hernia: Present: none - Rectum Rectum: Present: normal sphincter tone, no hemorrhoids, no tenderness, no masses , no bleeding - Integumentary Present: no rash, no growths, no abnormal pigmentation, other (chronic scarring left lower leg) - Neurologic Present: normal coordination, normal sensation - Musculoskeletal Present: normal gait, normal posture - Psychiatric Present: oriented to time, oriented to person, oriented to place, speech is normal, memory intact Results - Labs 03/22/17 05:30 03/22/17 05:30 Abnormal lab results 03/22/17 03/22/17 Range/Units 05:30 05:30 Gran % 84.6 H (38.0-78.0) % Lymph % (Auto) 9.2 L (15.5-49.0) % Lymph # (Auto) 0.5 L (1.5-4.8) K/mcL Calcium 8.5 L (8.6-10.4) mg/dl Phosphorus 2.3 L (2.7-4.5) mg/dL GGT 435 H (5-36) U/L AST 116 H (0-37) U/l ALT 209 H (0-40) U/l Alkaline Phosphatase 275 H (39-117) U/L Triglycerides 239 H (<150) mg/dl Lipase 255 H (7-60) U/L Diabetes panel 03/22/17 Range/Units 05:30 Sodium 137 (133-145) mmol/L Potassium 3.6 (3.3-5.1) mmol/L Chloride 102 (96-108) mmol/L Carbon Dioxide 22 (22-30) mmol/L BUN 6 (6-20) mg/dl Creatinine 0.9 (0.6-1.1) mg/dl Glucose 100 (70-105) mg/dL Calcium 8.5 L (8.6-10.4) mg/dl AST 116 H (0-37) U/l ALT 209 H (0-40) U/l Alkaline Phosphatase 275 H (39-117) U/L Total Protein 6.0 (5.9-8.4) gm/dL Albumin 3.5 (3.2-5.2) gm/dL Triglycerides 239 H (<150) mg/dl Calcium panel 03/22/17 Range/Units 05:30 Calcium 8.5 L (8.6-10.4) mg/dl Phosphorus 2.3 L (2.7-4.5) mg/dL Albumin 3.5 (3.2-5.2) gm/dL Pituitary panel 03/22/17 Range/Units 05:30 Sodium 137 (133-145) mmol/L Potassium 3.6 (3.3-5.1) mmol/L Chloride 102 (96-108) mmol/L Carbon Dioxide 22 (22-30) mmol/L BUN 6 (6-20) mg/dl Creatinine 0.9 (0.6-1.1) mg/dl Glucose 100 (70-105) mg/dL Calcium 8.5 L (8.6-10.4) mg/dl Adrenal panel 03/22/17 Range/Units 05:30 Sodium 137 (133-145) mmol/L Potassium 3.6 (3.3-5.1) mmol/L Chloride 102 (96-108) mmol/L Carbon Dioxide 22 (22-30) mmol/L BUN 6 (6-20) mg/dl Creatinine 0.9 (0.6-1.1) mg/dl Glucose 100 (70-105) mg/dL Calcium 8.5 L (8.6-10.4) mg/dl Total Bilirubin 0.7 (0.0-1.0) mg/dL AST 116 H (0-37) U/l ALT 209 H (0-40) U/l Alkaline Phosphatase 275 H (39-117) U/L Total Protein 6.0 (5.9-8.4) gm/dL Albumin 3.5 (3.2-5.2) gm/dL All other labs normal. Assessment and Plan (1) Acute cholecystitis due to biliary calculus patient is counseled for laparoscopic cholecystectomy. This will be performed in the morning. Status: Acute (2) Acute gallstone pancreatitis Status: Acute (3) Hyperglycemia Status: Acute
[2017-03-23] MEDS: INSULIN LISPRO 1 UNIT/0.01 ML UNIT SQ SCH ×4 (00:19→17:30)
[2017-03-23] MEDS: PIPERACILLIN SODIUM/TAZOBACTAM 3.375 GM in DEXTROSE 5% IN WATER 50 ML IV SCH ×4 (00:19→17:30)
[2017-03-23] MEDS: LACTATED RINGERS 1,000 ML IV SCH ×3 (05:00→20:25)
[2017-03-23] MEDS: 0.9 % SODIUM CHLORIDE 10 ML SYRINGE IV SCH ×3 (05:47→20:26)
[2017-03-23 06:52] LABS: Appearance,Urine CLEAR; Bacteria,Urine 0 /hpf (0); Bilirubin,Urine NEG (NEG); Color,Urine PALE YELLOW; Glucose,Urine (UA) NORM (NEG); Leukocyte Esterase,Urine NEG /uL (NEG); Mucus,Urine FEW /hpf (0); Nitrate,Urine NEG (NEG); Protein,Urine NEG (NEG); Specific Gravity,Urine 1.005 (1.000-1.035); Urine Blood NEG mg/dL (<0.03); Urine RBC < 1 /hpf (0-1); Urine Squamous Epithelial Cell 1 /hpf (0-4); Urine WBC < 1 /hpf (0-4); Urobilinogen,Urine NORM (NEG)
[2017-03-23 06:59] LABS: Basophils # (Auto) 0 K/mcL (0.0-0.3); Basophils % (Auto) 0.9 % (0.0-2.0); Eosinophils # (Auto) 0.2 K/mcL (0.0-0.7); Eosinophils % (Auto) 4.5 % (0.0-7.0); Granulocytes % (Auto) 48.7 % (38.0-78.0); Lymphocytes # (Auto) 1.3 K/mcL (1.5-4.8); Lymphocytes % (Auto) 31.7 % (15.5-49.0); Mean Cell Volume 87.7 fL (80.0-100.0); Mean Corpuscular HGB Conc 33.9 g/dL (31.0-36.0); Mean Corpuscular Hemoglobin 29.7 pg (26.0-34.0); Monocytes # (Auto) 0.6 K/mcL (0.1-0.9); Monocytes % (Auto) 14.2 % (1.0-12.0); Platelet Count 252 K/mcL (140-440); RBC 4.38 M/mcL (4.00-5.20); Red Cell Distribution Width 13.6 % (11.5-14.5)
[2017-03-23 07:39] LABS: ALT/SGPT 166 U/l (0-40); Albumin 3.4 gm/dL (3.2-5.2); Albumin/Globulin Ratio 1.2 (1.0-2.3); Alkaline Phosphatase 220 U/L (39-117); Amylase 74 U/L (28-100); Bilirubin,Direct 0.2 mg/dL (0.0-0.3); Blood Urea Nitrogen 5 mg/dl (6-20); Gamma Glutamyl Transpeptidase 359 U/L (5-36); Lipase 200 U/L (7-60); Magnesium 1.9 mg/dL (1.6-2.5); Uric Acid 2.4 mg/dL (2.5-8.0)
[2017-03-23] MEDS ORDERED: LACTATED RINGERS 1,000 ML IV SCH ×2 (07:56→09:30)
[2017-03-23] MEDS ORDERED: PROPOFOL 200 MG/20 ML VIAL IV ONE (08:37)
[2017-03-23] MEDS ORDERED: DEXAMETHASONE 10 MG/ML VIAL ONE (08:37)
[2017-03-23] MEDS ORDERED: ONDANSETRON 4 MG/2 ML VIAL ONE (08:37)
[2017-03-23] MEDS ORDERED: LIDOCAINE HCL/PF 100 MG/5 ML SYRINGE IV ONE (08:37)
[2017-03-23] MEDS ORDERED: SUCCINYLCHOLINE 20 MG/ML ML IV ONE (08:37)
[2017-03-23] MEDS ORDERED: MIDAZOLAM 5 MG/5 ML VIAL ONE (08:37)
[2017-03-23] MEDS ORDERED: fentaNYL 100 MCG/2 ML VIAL IV ONE (08:37)
[2017-03-23] MEDS ORDERED: GLYCOPYRROLATE 0.2 MG/ML VIAL IV ONE (08:37)
[2017-03-23] MEDS ORDERED: NEOSTIGMINE 1 MG/ML VIAL IV ONE (08:37)
[2017-03-23] MEDS ORDERED: BENZOCAINE/MENTHOL 1 LOZENGE PO PRN (09:18)
[2017-03-23] MEDS ORDERED: FLUMAZENIL 0.1 MG/ML ML IV PRN (09:18)
[2017-03-23] MEDS ORDERED: KETOROLAC 30 MG/ML VIAL IV PRN (09:18)
[2017-03-23] MEDS ORDERED: ONDANSETRON 4 MG/2 ML VIAL IV PRN ×2 (09:18→10:04)
[2017-03-23] MEDS ORDERED: ATROPINE SULFATE 0.4 MG/ML VIAL IV PRN (09:18)
[2017-03-23] MEDS ORDERED: NALOXONE HCL 0.4 MG/ML VIAL IV PRN ×2 (09:18→10:04)
[2017-03-23] MEDS ORDERED: fentaNYL 100 MCG/2 ML VIAL IV PRN (09:18)
[2017-03-23] MEDS ORDERED: ePHEDrine 50 MG/ML AMPUL IV PRN (09:18)
[2017-03-23] MEDS ORDERED: METHOCARBAMOL 1,000 MG/10 ML VIAL IV PRN (09:18)
[2017-03-23] MEDS ORDERED: METOPROLOL TARTRATE 5 MG/5 ML VIAL IV PRN (09:18)
[2017-03-23] MEDS ORDERED: MEPERIDINE 25 MG/ML SYRINGE IV PRN (09:18)
[2017-03-23] MEDS ORDERED: HYDROmorphone 2 MG/ML SYRINGE IV PRN ×2 (09:18→11:40)
[2017-03-23] MEDS ORDERED: IPRATROPIUM/ALBUTEROL 3 ML AMPUL.NEB NEB PRN (09:18)
[2017-03-23] MEDS ORDERED: diphenhydrAMINE 50 MG/ML VIAL IV PRN (09:18)
--- NOTE | 2017-03-23 09:27 | Brief Operative Note ---
Date of procedure: 03/23/17 Pre-op diagnosis: acute cholecystitis with cholelithiasis Post-op diagnosis: other (acute cholecystitis with cholelithiasis) Procedure: LAPAROSCOPIC CHOLECYSTECTOMY Grafts/Implants: No Anesthesia: GETA Findings: ACUTE MODERATELY SEVERE INFLAMMATION OF GALLBLADDER Complications: none Surgeon: Julianna Ivey Estimated blood loss (cc): 5 Specimens Removed/Pathology: other (GALLBLADDER) Condition: stable Disposition: PACU
[2017-03-23] MEDS ORDERED: LORazepam 2 MG/ML VIAL IV PRN (10:04)
[2017-03-23] MEDS ORDERED: DEXTROSE 50% 50 ML VIAL IV PRN (10:04)
[2017-03-23] MEDS ORDERED: MAGNESIUM HYDROXIDE 30 ML ORAL.SUSP PO PRN (10:04)
[2017-03-23] MEDS ORDERED: ALBUTEROL SULFATE 2.5 MG/3 ML NEBULIZER NEB PRN (10:04)
[2017-03-23] MEDS: PANTOPRAZOLE 40 MG VIAL IV SCH (10:42)
[2017-03-23] MEDS: CIPROFLOXACIN 400 MG/200 ML BAG IV SCH ×3 (12:56→20:26)
--- NOTE | 2017-03-23 14:19 | Internal Med Progress Note ---
Medical - PN: Subj Patient information: Note initiated : 03/23/17 at 2:14 pm Service Date, if different from initiated Date: [] Patient: Karlie Lockwood 41 y/o F admitted on 03/21/17 for Gallstone Pancreatitis, Cholecystitis. Chief Complaint: [] Interval history: March 20, 2017: History of present illness: Ms. Lockwood is a 41 year old female with minimal past medical history, mainly hyperlipidemia, who notes that she has had intermittent abdominal discomfort for the last 3 weeks. She says her abdominal pain started rather suddenly just about 3 weeks ago. She thought perhaps she had an ulcer, so she obtained some ulcer medications to take. She was feeling a bit better, until yesterday morning, when she had sudden increase in epigastric pain as well as nausea. Over the course of yesterday her pain built up to about a 9 out of 10. She says she has been having fever and chills for the last couple of days. She has not had a bowel movement for about 3 days now. She denies vomiting or diarrhea. She normally drinks 2-3 cans of beer per day, but is not had any beer for several days. She does not smoke. ER evaluation showed markedly elevated amylase and lipase, consistent with pancreatitis. CT scan is suggestive of gallstone pancreatitis with cholangitis. Patient is now admitted for further evaluation and treatment. Her serum glucose was also markedly elevated, but she denies history of diabetes. March 21: Today, the patient notes her pain is pretty well controlled. She has not had any more nausea and no vomiting. She is feeling quite chilled after just coming back from the MRI suite. Otherwise she has not had further fever or shaking chills, chest pain or trouble breathing, diarrhea or constipation. She has passed some flatus. She denies dysuria. March 22: Today, the patient says she is feeling much better. She denies any abdominal pain, nausea or vomiting. She did have a low-grade temp last night of 100.8. She denies subjective fever or chills, chest pain or shortness of breath, abdominal pain, nausea or vomiting, diarrhea or constipation or dysuria. Pancreatic enzymes and liver enzymes continue to improve. March 23: s/p lap roxi this AM. "I feel better." Her abdominal pain is well controlled. She is eating and voiding. No nausea. She has a mild rash on her low back that is slightly itchy. She usually puts hydrocortisone on it at home. Pertinent ROS: No fever, CP or SOB. - Constitutional Vitals: Vital Signs Temp Pulse Resp BP Pulse Ox 98.0 F 78 11 L 101/71 95 03/23/17 09:57 03/23/17 09:57 03/23/17 09:57 03/23/17 12:05 03/23/17 12:05 Period Temp Pulse Resp BP Sys/Collazo Pulse Ox Last 24 Hr 97.8 F-99.2 F 60-84 11-18 101-128/40-88 94-100 Intake and Output 03/23/17 03/23/17 03/23/17 05:59 13:59 21:59 Intake Total 1450 / 1450 1350 / 1350 Output Total 1500 / 1500 600 / 600 Balance -50 / -50 750 / 750 Intake & Output: Intake & Output 03/23/17 03/23/17 03/23/17 05:59 13:59 21:59 Intake Total 1450 / 1450 1350 / 1350 Output Total 1500 / 1500 600 / 600 Balance -50 / -50 750 / 750 Intake: IV 1250 / 1250 Lactated Ringers 1,000 ml @ 250 1000 / 1000 mls/hr IV .Q4H [facility] Rx#: [id number] Zosyn 3.375 gm In Dextrose 5% 50 / 50 in Water 50 ml @ 100 mls/hr IV Q6H [facility] Rx#:[id number] Oral 200 / 200 Other 1350 / 1350 Output: Void Amount 1500 / 1500 550 / 550 Estimated Blood Loss 50 / 50 Other: # Voids 1 Exam: Gen: NAD, pleasant HEENT: NC/AT. MMM. PERRLA CV: RRR. No edema Resp: CTAB. Abd: soft/nd/nt. +BT. incisions c/d/i NRO: a/O x 3. No focal deficits Skin: faint, erythematous, non-scaly rash on lower back. Psych: good mood w congruent affect Medical - PN: Obj Da - Labs CBC & Chem 7: 03/23/17 05:17 03/23/17 05:17 Labs: Abnormal Lab Results 03/23/17 03/23/17 03/22/17 05:17 05:17 05:30 WBC 4.3 L Gran % Lymph % (Auto) [place] % (Auto) 14.2 H Gran # Lymph # (Auto) 1.3 L VBG Lactic Acid BUN 5 L Glucose Uric Acid 2.4 L Calcium 8.5 L Phosphorus 2.3 L Total Bilirubin Direct Bilirubin GGT 359 H 435 H AST 82 H 116 H ALT 166 H 209 H Alkaline Phosphatase 220 H 275 H Triglycerides 221 H 239 H Amylase Lipase 200 H 255 H 03/22/17 03/21/17 03/21/17 05:30 04:00 04:00 WBC Gran % 84.6 H Lymph % (Auto) 9.2 L [place] % (Auto) Gran # Lymph # (Auto) 0.5 L 1.3 L VBG Lactic Acid BUN Glucose Uric Acid Calcium 8.4 L Phosphorus Total Bilirubin Direct Bilirubin 0.4 H GGT 560 H AST 164 H ALT 263 H Alkaline Phosphatase 327 H Triglycerides 354 H Amylase 359 H Lipase 1854 H 03/20/17 03/20/17 03/20/17 21:48 21:48 21:48 WBC 11.5 H Gran % 84.4 H Lymph % (Auto) 8.8 L [place] % (Auto) Gran # 9.7 H Lymph # (Auto) 1.0 L VBG Lactic Acid 2.4 H BUN Glucose 256 H Uric Acid Calcium Phosphorus Total Bilirubin 1.2 H Direct Bilirubin GGT AST 238 H ALT 283 H Alkaline Phosphatase 354 H Triglycerides Amylase 630 H Lipase 7580 H Meds: Medications Albuterol Sulfate (Ventolin) 2.5 mg NEB Q2HP PRN PRN Reason: Shortness Of Breath Dextrose (Dextrose 50%) 0 ml IV UD PRN PRN Reason: Hypoglycemia Diagnostic Test (Pha) (Accu-Chek) 1 each FS Q6 [facility] Last Admin: 03/23/17 12:59 Dose: 1 each Hydromorphone HCl (Dilaudid) 1 mg IV Q4HP PRN PRN Reason: Pain Ciprofloxacin (Cipro) 400 mg in 200 mls @ 200 mls/hr IV Q12H [facility] Last Admin: 03/23/17 12:56 Dose: 200 mls/hr Lactated Ringer's (Lactated Ringers) 1,000 mls @ 100 mls/hr IV .Q10H [facility] Last Admin: 03/23/17 12:55 Dose: 100 mls/hr Piperacillin Sod/Tazobactam (Sod 3.375 gm/ Dextrose) 50 mls @ 100 mls/hr IV Q6H [facility] Insulin Human Lispro (Humalog) 0 unit SQ Q6 [facility] PRN Reason: Protocol Last Admin: 03/23/17 13:01 Dose: Not Given Lorazepam (Ativan) 0.5 mg IV Q2HP PRN PRN Reason: ANXIETY/SEDATION Magnesium Hydroxide (Milk Of Magnesia) 30 ml PO DAILYP PRN PRN Reason: Constipation Morphine Sulfate (Morphine) 4 mg IV Q4HP PRN PRN Reason: Pain Last Admin: 03/23/17 10:16 Dose: 4 mg Naloxone HCl (Narcan) 0.1 mg IV Q2MIN PRN PRN Reason: Opiate Reversal Ondansetron HCl (Zofran) 4 mg IV Q6HP PRN PRN Reason: Nausea And Vomiting Pantoprazole Sodium (Protonix) 40 mg IV QAMAC [facility] Sodium Chloride (Saline Flush) 10 ml IV Q8 [facility] Last Admin: 03/23/17 13:02 Dose: Not Given Medical - PN: A/P - Time Spent With Patient Total time spent is greater than 50% in coordination of care (as documented) at patient's floor/unit and/or counseling patient: 25 - 35 minutes - Narrative A/P Narrative: #Acute gallstone pancreatitis with cholecystitis and cholangitis -lipase 7580 on admit; CT/MRCP findings suggest cholecystitis and cholangitis -appreciate GI (Cong) and surgery (Ivey) input -s/p lap roix 03/[address] Ivey -currently on Zosyn and cipro; cipro added d/t persistent fevers. Will likely DC on 7 days of Augmentin. BC negative -on full liquid diet and IVF per Dr. Ivey. Defer diet advancement to surgery -cont IV Dilaudid and morphine as needed. Add hydrocodone for oral coverage #Stress hyperglycemia -A1C 5.0. BG have been under adequate control without insulin. CTM # Hyperlipidemia. -TG 221, non-HDL 258, HDL 49 -not on medication as OP. Pt is interested in lifestyle changes. We discussed diet and exercise. #CODE STATUS: Full code. Her will act as her POA. # DVT prophylaxis: SCDs. [facility] - PN: Qual - VTE Deep Vein Thrombosis/Pulmonary Embolism Present on Admission: No
[2017-03-23] MEDS ORDERED: HYDROcodone/APAP 5/325MG TABLET PO PRN (14:28)
[2017-03-24] MEDS: PIPERACILLIN SODIUM/TAZOBACTAM 3.375 GM in DEXTROSE 5% IN WATER 50 ML IV SCH ×3 (00:05→11:42)
[2017-03-24] MEDS: INSULIN LISPRO 1 UNIT/0.01 ML UNIT SQ SCH ×3 (00:05→11:44)
[2017-03-24] MEDS: 0.9 % SODIUM CHLORIDE 10 ML SYRINGE IV SCH ×2 (05:43→13:54)
[2017-03-24] MEDS: LACTATED RINGERS 1,000 ML IV SCH ×2 (05:50→09:16)
[2017-03-24 05:51] LABS: ALT/SGPT 127 U/l (0-40); Albumin 3.4 gm/dL (3.2-5.2); Albumin/Globulin Ratio 1.3 (1.0-2.3); Alkaline Phosphatase 181 U/L (39-117); Bilirubin,Direct 0.2 mg/dL (0.0-0.3); Blood Urea Nitrogen 5 mg/dl (6-20); Gamma Glutamyl Transpeptidase 299 U/L (5-36); Magnesium 2.1 mg/dL (1.6-2.5); Uric Acid 1.8 mg/dL (2.5-8.0)
[2017-03-24] MEDS ORDERED: PANTOPRAZOLE 40 MG VIAL IV SCH (07:30)
[2017-03-24] MEDS: CIPROFLOXACIN 400 MG/200 ML BAG IV SCH (09:14)
--- NOTE | 2017-03-24 13:02 | General Surgery Progress Note ---
Subjective Patient reports: feels better, pain is less, tolerating liquids well, flatus, no bowel movement, afebrile Narrative: Note initiated : 03/24/17 at 12:59 pm Service Date, if different from initiated Date: [] Patient: Karlie Lockwood 41 y/o F admitted on 03/21/17 for Gallstone Pancreatitis, Cholecystitis. Chief Complaint: [patient is doing much better. She states that all of her preoperative pain has resolved. She denies nausea and has had flatus. She is tolerated a full liquid diet without difficulty and has no abdominal discomfort. Her transaminases pattern continues to improve.] Objective Temp Pulse Resp BP Pulse Ox 97.2 F 56 L 18 105/61 97 03/24/17 11:13 03/24/17 07:50 03/24/17 11:13 03/24/17 11:13 03/24/17 11:13 - Additional Data Intake & Output - Last 24 hours: Intake & Output 03/22/17 03/23/17 03/24/17 03/25/17 05:59 05:59 05:59 05:59 Intake Total 5200 / 5200 5040 / 5040 4290 / 4290 1660 / 1660 Output Total 5375 / 5375 5600 / 5600 2400 / 2400 1000 / 1000 Balance -175 / -175 -560 / -560 1890 / 1890 660 / 660 Weight 159 lb 158 lb 157 lb 8 oz - General physical appearance no distress, moderate pain - Eyes PERRL - ENT no congestion - Neck no venous distension - Respiratory normal respiratory effort, clear to auscultation - Cardiovascular Cardiovascular exam: Present: normal rate and rhythm, RRR, +S1, +S2. Absent: JVD - Abdomen tender, distended (she has mild abdominal distention with mild tenderness around her operative sites.) - Integumentary no rash, no growths, no abnormal pigmentation - Neurologic normal coordination, normal sensation - Musculoskeletal normal gait, normal posture - Psychiatric oriented to time, oriented to person, oriented to place, speech is normal, memory intact - Labs 03/23/17 05:17 03/24/17 04:22 Diabetes panel 03/24/17 Range/Units 04:22 Sodium 140 (133-145) mmol/L Potassium 3.8 (3.3-5.1) mmol/L Chloride 103 (96-108) mmol/L Carbon Dioxide 23 (22-30) mmol/L BUN 5 L (6-20) mg/dl Creatinine 0.8 (0.6-1.1) mg/dl Glucose 109 H (70-105) mg/dL Calcium 8.9 (8.6-10.4) mg/dl AST 43 H (0-37) U/l ALT 127 H (0-40) U/l Alkaline Phosphatase 181 H (39-117) U/L Total Protein 6.1 (5.9-8.4) gm/dL Albumin 3.4 (3.2-5.2) gm/dL Triglycerides 129 (<150) mg/dl Calcium panel 03/24/17 Range/Units 04:22 Calcium 8.9 (8.6-10.4) mg/dl Phosphorus 4.4 (2.7-4.5) mg/dL Albumin 3.4 (3.2-5.2) gm/dL Pituitary panel 03/24/17 Range/Units 04:22 Sodium 140 (133-145) mmol/L Potassium 3.8 (3.3-5.1) mmol/L Chloride 103 (96-108) mmol/L Carbon Dioxide 23 (22-30) mmol/L BUN 5 L (6-20) mg/dl Creatinine 0.8 (0.6-1.1) mg/dl Glucose 109 H (70-105) mg/dL Calcium 8.9 (8.6-10.4) mg/dl Adrenal panel 03/24/17 Range/Units 04:22 Sodium 140 (133-145) mmol/L Potassium 3.8 (3.3-5.1) mmol/L Chloride 103 (96-108) mmol/L Carbon Dioxide 23 (22-30) mmol/L BUN 5 L (6-20) mg/dl Creatinine 0.8 (0.6-1.1) mg/dl Glucose 109 H (70-105) mg/dL Calcium 8.9 (8.6-10.4) mg/dl Total Bilirubin 0.5 (0.0-1.0) mg/dL AST 43 H (0-37) U/l ALT 127 H (0-40) U/l Alkaline Phosphatase 181 H (39-117) U/L Total Protein 6.1 (5.9-8.4) gm/dL Albumin 3.4 (3.2-5.2) gm/dL Assessment and Plan (1) Acute cholecystitis due to biliary calculus Status: Acute Assessment and plan: patient has recovered uneventfully from cholecystectomy and is stable for discharge from a surgical standpoint. She is advised to have follow up in the office in 2 weeks. She may call the office on Sunday to verify her appointment time.she is advised to restrict the fat in her diet. Current Visit: Yes (2) Acute gallstone pancreatitis Status: Acute Current Visit: Yes (3) Hyperglycemia Status: Acute Current Visit: Yes - Time Spent With Patient Total time spent is greater than 50% in coordination of care (as documented) at patient's floor/unit and/or counseling patient:
--- NOTE | 2017-03-24 13:17 | Discharge Summary ---
Medical - DS: Prov Patient information: Note initiated : 03/24/17 at 1:14 pm Service Date, if different from initiated Date: [] Patient: Karlie Lockwood 41 y/o F admitted on 03/21/17 for Gallstone Pancreatitis, Cholecystitis. Chief Complaint: [] Date of admission: 03/21/17 00:24 Discharge date: 03/24/17 Primary care physician: Kayode Paz Admitting clinician: Rosy Mkai Consults: 03/20/17 23:44 Consult to Physician [CONS] Stat Comment: Consulting Provider: Kayode Gar Reason For Exam: Physician to Consult 03/22/17 12:50 Consult to Physician [CONS] Routine Comment: cholangitis Consulting Provider: Julianna Ivey Reason For Exam: Physician to Consult Discharging clinician: Barb Wheat Medical - DS: Meds - Discharge Medications Active and Home Medications: Home Medications Multivitamin [One Daily Multivitamin] 1 each PO DAILY 03/21/17 [History Confirmed 03/21/17 Last Taken 03/20/17 08:00] Medical - DS: Hosp Hospital course: Ms. Lockwood is a 41 year old FWith a history of hyperlipidemia not on medical therapy who presented with a three-week history of intermittent abdominal discomfort. She was found to have gallstone pancreatitis with cholecystitis and cholangitis. She was treated with Zosyn but had persistent fevers and so ciprofloxacin was added. She underwent lap cholecystectomy by Dr. Ivey on 03/23. She is recovering well and discharged on Augmentin. She had hyperglycemia. A1c was 5.0 and this likely represents stress hyperglycemia. She is interested in lifestyle changes for her hyperlipidemia and general health and we discussed some of these during her admission. Discharge diagnosis: Acute cholecystitis with cholangitis Secondary discharge diagnosis: Acute gallstone pancreatitis Stress hyperglycemia Hyperlipidemia Pertinent studies/significant findings: Lipase~7500 on admission 03/20 CT abdomen and pelvis shows cholecystitis with biliary epithelium changes consistent with cholangitis. 03/21 MRCP shows no retained stone - Time Spent with Patient Total time spent providing and/or coordinating discharge services: Greater than 30 minutes Medical - DS: Exam - Constitutional Vitals: Vital Signs Temp Pulse Pulse Resp BP Pulse Ox 03/24/17 11:13 97.2 F 18 105/61 97 03/24/17 07:50 56 L 18 97 03/24/17 06:32 97.8 F 18 100/66 97 03/24/17 04:00 98.3 F 58 L 18 106/66 97 03/24/17 01:21 62 100/64 03/24/17 00:38 58 L 106/58 03/24/17 00:00 98.0 F 52 L 45 L 18 87/56 95 03/23/17 19:24 98.0 F 63 18 103/67 96 03/23/17 16:00 97.9 F 16 104/67 95 Intake and Output 03/23/17 03/24/17 03/24/17 21:59 05:59 13:59 Intake Total 2090 / 2090 850 / 850 1660 / 1660 Output Total 1150 / 1150 1000 / 1000 Balance 940 / 940 850 / 850 660 / 660 Intake: IV 1250 / 1250 50 / 50 1300 / 1300 Lactated Ringers 1,000 ml @ 100 750 / 750 1000 / 1000 mls/hr IV .Q10H [facility] Rx#: [id number] Zosyn 3.375 gm In Dextrose 5% 100 / 100 50 / 50 100 / 100 in Water 50 ml @ 100 mls/hr IV Q6H [facility] Rx#:[id number] Oral 240 / 240 800 / 800 360 / 360 GI Tube Flush 600 / 600 Output: Void Amount 1150 / 1150 1000 / 1000 Other: Meal Dinner Breakfast Percent of Meal Consumed 100% 100% Feeding Ability Independent Independent # Voids 1 Weight 157 lb 8 oz General: NAD, pleasant CV: Regular rate and rhythm. No murmur Respiratory: CTAB Abdomen: Soft, nondistended, nontender. Positive bowel tones. Incisions are clean dry and intact Extremities: No clubbing, cyanosis or edema. Neuro: Oriented 3. No focal motor or sensory deficits. Medical - DS: Data Procedures and tests throughout hospitalization: laparoscopic cholecystectomy 03/23/17 Labs on day of discharge: Labs from last 24 hours 03/24/17 04:22 Sodium 140 Potassium 3.8 Chloride 103 Carbon Dioxide 23 Anion Gap 14.0 BUN 5 L Creatinine 0.8 GFR Calculation 92 Glucose 109 H Uric Acid 1.8 L Calcium 8.9 Phosphorus 4.4 Magnesium 2.1 Total Bilirubin 0.5 Direct Bilirubin 0.2 GGT 299 H AST 43 H ALT 127 H Alkaline Phosphatase 181 H Lactate Dehydrogenase 167 Total Protein 6.1 Albumin 3.4 Globulin 2.7 Albumin/Globulin Ratio 1.3 Triglycerides 129 Preliminary micro results at discharge 03/21/17 00:45 Blood Culture - Preliminary Blood 03/21/17 00:55 Blood Culture - Preliminary Blood Medical - DS: A/P - Patient/Caregiver Discharge Instructions Activity: resume usual activities as tolerated Diet: Regular Diet Prescriptions: HYDROcodone/APAP 5/325MG [[place] 5/325Mg] 1 tab PO Q4HP PRN #10 tab PRN Reason: Pain - Follow up Plan Follow up with: Kayode Paz DO [Primary Care Provider] - Julianna Ivey MD [Physician] - 04/05/17 10:00 am Disposition: Home, Self-Care Prognosis: Good Rehab Potential: Good I certify that the patient requires SNF services: No Overall status at discharge: patient is progressing back to baseline Medical - DS: Qual - VTE Deep Vein Thrombosis/Pulmonary Embolism Present on Admission: No
--- NOTE | 2017-03-26 13:45 | Surgical Pathology Report ---
HISTOLOGY SPECIMEN MICROSCOPIC DIAGNOSIS GALLBLADDER, CHOLECYSTECTOMY: -- ACUTE AND CHRONIC CHOLECYSTITIS WITH CHOLELITHIASIS. (RLF:vandanaf) CLINICAL HISTORY Recurrent severe abdominal pain of 3 weeks duration. PROCEDURAL IMPRESSION Acute cholecystitis due to biliary calculus. GROSS DESCRIPTION Received in formalin labeled with the patient information and further designated as gallbladder, is an 8.2 x 2.9 x 2.7 cm pink-ovalles gallbladder. The serosal surface is smooth and glistening. There are two metal clips present and the duct is stapled. The lumen contains viscous, bright yellow fluid and a single yellow stone lodged within the duct, which is 0.5 cm in greatest dimension. The mucosa is yellow-ovalles and velvety. The wall is up to 0.8 cm thick. [employer]way [employer] sections submitted - one cassette. (STM:davey) Electronically Signed by: Acacia Dean M.D.
--- NOTE | 2017-03-27 11:39 | Operative Note ---
DATE OF OPERATION: 03/23/2017 PREOPERATIVE DIAGNOSIS: Acute cholecystitis with cholelithiasis. POSTOPERATIVE DIAGNOSIS: Acute cholecystitis with cholelithiasis. PROCEDURE: Laparoscopic cholecystectomy. SURGEON: Julianna Ivey MD. FINDINGS: Moderately severe acute inflammation of the gallbladder. DESCRIPTION: Under general anesthesia, the patient's abdomen was prepped and draped in the sterile field. Supraumbilical incision was made. Veress needle was inserted uneventfully. Abdomen was insufflated with 2 liters of CO2. A 12 mm port was placed. Laparoscope was placed. An inflamed, dilated gallbladder was encountered. Under videoscopic guidance, a 12 mm port and two 5 mm ports were placed in the right subcostal region. The gallbladder was grasped and positioned. It was decompressed using a Weck needle. Cystic duct was dissected. It was followed back to the gallbladder. Cystic artery was dissected and followed onto the wall of the gallbladder. Cystic artery was clipped with three clips on the wall of the gallbladder and divided. Cystic duct was too large and thick for the clips, so it was transected using an Endo KETAN stapler. The gallbladder was then from infrahepatic bed using primarily electrocautery. Hemostasis was achieved. The gallbladder was placed in an Endopouch and retrieved. Irrigation was carried out. The irrigating fluid was clear. CO2 was allowed to escape from the abdomen, and the ports were removed. Fascia at the umbilicus was closed with 0 Vicryl. Skin incisions were closed with arcelia. Patient tolerated the procedure well. Dressings were placed. She was awakened, transferred to a bed and taken to the postanesthetic care unit in stable, satisfactory condition. LCS:radha Job ID: [id number] Doc ID: [id number] Julianna Ivey M.D.
== END 2017-03-24 15:15 | disposition home or self-care (01) | DRG 418 ==
LOC: ED 21:05 → MEDSUR 03-21 00:24
PROVIDERS: ADMIT Internal Medicine; ATTEND Internal Medicine